=== PATIENT | male | born 1980 | race Hispanic/Latino ===

== ENCOUNTER 2017-12-06 22:34 | Emergency (ER) | payer BC, OTHER ==
[2017-12-06 22:56] VITALS: BP 134/79; PULSE 69; RESP 20; TEMP 97.8; O2SAT 98
--- NOTE | 2017-12-06 23:32 | C.PDOC ---
History Of Present Illness Patient is a 37 y/o male with a past medical history of anxiety and depression, brought in by girlfriend for evaluation of head injury. As per girlfriend, when they were home she heard him fall and hit his head. Patient does not remember fall and lost consciousness very briefly, but then came to with normal behavior. Denies any nausea, vomiting, severe headache, or dizziness. Patient states he is very depressed and has been drinking 2 bottles of vodka for the last 5 days. Prior to the last 5 days he had not been drinking at all. Denies any hallucinations, suicidal or homicidal ideation. Time Seen by Provider: 12/06/17 23:45 Chief Complaint (Nursing): Substance Abuse History Per: Patient History/Exam Limitations: no limitations Onset/Duration Of Symptoms: Days Current Symptoms Are (Timing): Still Present Modifying Factor(s): Alcohol Associated Symptoms: Depression Additional History Per: Girlfriend Past Medical History Reviewed: Historical Data, Nursing Documentation, Vital Signs Vital Signs: Last Vital Signs Temp 97.8 F 12/06/17 22:50 Pulse 69 12/06/17 22:50 Resp 20 12/06/17 22:50 BP 134/79 12/06/17 22:50 Pulse Ox 98 12/07/17 00:16 - Medical History PMH: Anxiety (prescribed valium, noncompliant), Depression, GERD, HTN Denies: Diabetes, Hepatitis, HIV, Chronic Kidney Disease, Seizures, Sexually Transmitted Disease Surgical History: No Surg Hx - [facility] DETOXIFICATION SERVICES FOR SUBSTANCE ABUSE TREATMENT (03/14/16) GROUP PSYCHOTHERAPY (03/14/16) Family History: States: No Known Family Hx - Social History Hx Tobacco Use: No Hx Alcohol Use: Yes (since early teens) Hx Substance Use: No - Immunization History Hx Tetanus Toxoid Vaccination: Yes Hx Influenza Vaccination: No Hx Pneumococcal Vaccination: No Review Of Systems Except As Marked, All Systems Reviewed And Found Negative. Constitutional: Positive for: Other (Alcohol ingestion) Eyes: Negative for: Vision Change Gastrointestinal: Negative for: Nausea, Vomiting Skin: Positive for: Lesions (to face) Neurological: Positive for: Other (Head injury, +LOC). Negative for: Weakness, Numbness, Headache, Dizziness Psych: Negative for: Suicidal ideation (and homicidal), Other (hallucinations) Physical Exam - Physical Exam Appears: No Acute Distress, Other (Tearful at bedside ) Skin: Normal Color, Warm, Dry Head: Normacephalic, No Swelling, No Laceration Eye(s): bilateral: Normal Inspection, PERRL, EOMI Ear(s): Bilateral: Normal Nose: Normal Oral Mucosa: Moist Lips: Abrasion (abrasion to left lower lip, laterally, with no active bleeding) Neck: Normal ROM, Supple Chest: Symmetrical Cardiovascular: Rhythm Regular, No Murmur Respiratory: Normal Breath Sounds, No Accessory Muscle Use Gastrointestinal/Abdominal: Bowel Sounds, Soft, No Tenderness, No Distention Extremity: Normal ROM, No Tenderness, No Swelling, Other (3 linear abrasions across the mid left arm without active bleeding, with associated contusion) Pulses: Left Radial: Normal, Right Radial: Normal Neurological/Psych: Oriented x3, Normal Speech ED Course And Treatment - Laboratory Results Result Diagrams: 12/07/17 00:13 12/07/17 00:13 O2 Sat by Pulse Oximetry: 98 (RA) Pulse Ox Interpretation: Normal - CT Scan/US CT Head Other Rad Studies (CT/US): Read By Radiologist, Radiology Report Reviewed CT/US Interpretation: FINDINGS: Limitations: Motion artifact - mild. Brain: Minimal atrophy. No definite intracranial hemorrhage. No mass. No definite edema. Ventricles: No hydrocephalus. Bones/joints: No acute fracture. Soft tissues: Unremarkable. Sinuses: Scattered mild mucosal thickening. Mastoid air cells: No mastoid effusion. Orbits: Unremarkable as visualized. IMPRESSION : 1. No definite acute intracranial abnormality. 2. Incidental/non-acute findings are described above. Thank you for allowing us to participate in the care of your patient. Dictated and Authenticated by: Wilfred Newell MD. 12/07 1:23 AM Eastern Time ([place] & [place]) Medical Decision Making Medical Decision Making: Prior records reviewed: Patient was last admitted here for alcohol detox in 2016, and discharged on , with diagnosis of anxiety. Has had severe episodes of withdrawal symptoms in the past. Time: 23:51 Initial Plan: * EKG * CMP * CBC * Alcohol serum * Urine drug screen * Acetaminophen * Salicylate * Urinalysis * Accucheck * 50 mg Librium * CT Head W/O contrast * Pending crisis evaluation Discussed case with plant nursery worker, patient does not need detox however he may need inpatient admission for severe depression. CT viewed by me, shows: No acute intracranial pathology, no bleed. Labs reviewed: CBC is unremarkable, Chemistry shows Sodium of 149 Alcohol level is 383. Total bili 2.7. Aspirin and Tylenol negative. Labs consistent with starvation/alcoholic ketoacidosis. 00:40 Informed by RN that patient has eloped from the ED. Disposition - Disposition Disposition: ELOPEMENT - ER ONLY Disposition Time: 00:40 Condition: GOOD Forms: [facility] (Malay) - POA Present On Arrival: Falls Or Trauma - Clinical Impression Clinical Impression: Alcohol intoxication, Dehydration, Depression, Starvation ketoacidosis - Scribe Statement The provider has reviewed the documentation as recorded by the Scribe (Amanda Aponte) Provider Attestation: All medical record entries made by the Scribe were at my direction and personally dictated by me. I have reviewed the chart and agree that the record accurately reflects my personal performance of the history, physical exam, medical decision making, and the department course for this patient. I have also personally directed, reviewed, and agree with the discharge instructions and disposition.
--- NOTE | 2017-12-06 23:36 | C.PDOC ---
Chief Complaint (Nursing): Substance Abuse Past Medical History Vital Signs: Last Vital Signs Temp 97.8 F 12/06/17 22:50 Pulse 69 12/06/17 22:50 Resp 20 12/06/17 22:50 BP 134/79 12/06/17 22:50 Pulse Ox 98 12/06/17 22:50 - Medical History PMH: Anxiety, Depression, HTN Denies: Diabetes, Hepatitis, HIV, Chronic Kidney Disease, Seizures, Sexually Transmitted Disease - [facility] Procedures DETOXIFICATION SERVICES FOR SUBSTANCE ABUSE TREATMENT (03/14/16) GROUP PSYCHOTHERAPY (03/14/16) - Social History Hx Tobacco Use: No Hx Alcohol Use: Yes Hx Substance Use: No - Immunization History Hx Tetanus Toxoid Vaccination: Yes Hx Influenza Vaccination: No Hx Pneumococcal Vaccination: No ED Course And Treatment O2 Sat by Pulse Oximetry: 98 Disposition - Disposition Forms: [facility] ([place]ican)
[2017-12-07 00:18] LABS: BASO # 0.1 K/uL (0.0-0.2); BASO % 1.2 % (0.0-2.0); EOS # 0.3 K/uL (0.0-0.7); EOS % 3.7 % (0.0-4.0); LYMPH # 2.9 K/uL (1.0-4.3); LYMPH % 30.9 % (20.0-40.0); MEAN CORPUSCULAR HEMOGLOBIN 31.9 pg (27.0-31.0); MEAN CORPUSCULAR HGB CONC 35.1 g/dL (33.0-37.0); MEAN PLATELET VOLUME 6.6 fL (7.2-11.7); MONO # 0.4 K/uL (0.0-0.8); MONO % 3.9 % (0.0-10.0); NEUT # 5.6 K/uL (1.8-7.0); NEUT % 60.3 % (50.0-75.0); NRBC % 0.2 % (0.0-2.0); RBC 5.32 Mil/uL (4.40-5.90); RED CELL DISTRIBUTION WIDTH 12.9 % (11.5-14.5); WHITE BLOOD COUNT 9.3 K/uL (4.8-10.8)
[2017-12-07 00:23] LABS: MEAN CELL VOLUME 90.8 fL (80.0-94.0)
[2017-12-07 00:32] LABS: ACETAMINOPHEN < 10.0 ug/mL (10.0-30.0); ALB/GLOB RATIO 1.5 (1.0-2.1); ALBUMIN 5.2 g/dL (3.5-5.0); ALT/SGPT 43 U/L (21-72); AST/SGOT 50 U/L (17-59); BLOOD UREA NITROGEN 9 mg/dL (9-20); GFR AFRICAN-AMERICAN > 60; GFR NON-AFRICAN AMERICAN > 60; SALICYLATE < 1.0 mg/dL 1
[2017-12-07 01:02] LABS: BARBITURATES, UR NEGATIVE (NEGATIVE); OPIATES, UR NEGATIVE (NEGATIVE); PHENCYCLIDINE, UR NEGATIVE (NEGATIVE)
[2017-12-07 01:05] LABS: BENZODIAZEPINES, UR POSITIVE (NEGATIVE)
[2017-12-07 01:16] LABS: URINE BILIRUBIN NEGATIVE (NEGATIVE); URINE BLOOD NEGATIVE (NEGATIVE); URINE CLARITY Clear (Clear); URINE COLOR Yellow (YELLOW); URINE GLUCOSE (UA) NORMAL (Normal); URINE LEUKOCYTE ESTERASE NEG Leu/uL (Negative); URINE PROTEIN NEGATIVE (NEGATIVE); URINE UROBILINOGEN NORMAL mg/dL (0.2-1.0)
--- NOTE | 2017-12-07 01:23 | CT ---
EXAM: CT Head Without Intravenous Contrast CLINICAL HISTORY: 37 years old, male; Signs and symptoms; Altered mental status/memory loss; Patient HX: Best possible images; Additional info: Overdose TECHNIQUE: Axial computed tomography images of the head/brain without intravenous contrast. All CT scans at this facility use one or more dose reduction techniques, viz.: automated exposure control; ma/kV adjustment per patient size (including targeted exams where dose is matched to indication; i.e. head); or iterative reconstruction technique. Coronal and sagittal reformatted images were created and reviewed. COMPARISON: No relevant prior studies available. FINDINGS: Limitations: Motion artifact - mild. Brain: Minimal atrophy. No definite intracranial hemorrhage. No mass. No definite edema. Ventricles: No hydrocephalus. Bones/joints: No acute fracture. Soft tissues: Unremarkable. Sinuses: Scattered mild mucosal thickening. Mastoid air cells: No mastoid effusion. Orbits: Unremarkable as visualized. IMPRESSION: 1. No definite acute intracranial abnormality. 2. Incidental/non-acute findings are described above.
== END 2017-12-07 00:40 | disposition left against medical advice (07) ==
LOC: C.ER 22:34
DX: F32.9 Major depressive disorder, single episode, unspecified (principal); F10.129 Alcohol abuse with intoxication, unspecified; Y90.8 Blood alcohol level of 240 mg/100 ml or more; E86.0 Dehydration; E87.2 Acidosis

== ENCOUNTER 2018-10-05 01:29 | Observation (INO) | payer BC, OTHER | END 2018-10-05 15:39 | disposition home or self-care (01) | LOC: C.ER 01:29 → C.9E 02:39 → C.5S 03:18 | DX: J45.901 Unspecified asthma with (acute) exacerbation (principal); I10 Essential (primary) hypertension; K21.9 Gastro-esophageal reflux disease without esophagitis; F12.90 Cannabis use, unspecified, uncomplicated; F17.200 Nicotine dependence, unspecified, uncomplicated ==